=== PATIENT | female | born 2000 | race Two or more races ===

== ENCOUNTER 2024-10-26 09:11 | Observation (INO) | payer SELFPAY ==
[2024-10-26 09:18] VITALS: BP 110/66; PULSE 81; RESP 17; RESP 98; TEMP 36.8
[2024-10-26 09:31] VITALS: BP 110/66; PULSE 81
[2024-10-26 09:33] VITALS: BMI 28.1
--- NOTE | 2024-10-26 11:10 | XR_ITS ---
Examination: Complete OB ultrasound greater than 14 weeks Date and time of exam: October 26, 2024 1246 hours INDICATIONS: Onset vaginal bleeding today Findings: Viable intrauterine single fetus with single amniotic sac presentation cephalic Cardiac motion 145 BPM Placenta posterior grade 2 no abruption Umbilical cord insertion 3 vessel seen Amniotic fluid 8.3 cm spine maternal right Cervix 3.4 cm. Composite estimated gestational age based on BPD, head circumference, abdominal circumference, femur length is 30 weeks 5 days Estimated weight 1563 g. Survey of intracranial anatomy, spinal anatomy, abdominal anatomy, four-chamber heart performed with no abnormalities identified. Impression: Viable intrauterine gestation cephalic presentation Placenta posterior grade 2 no abruption.
[2024-10-26 11:18] LABS: Collection Type, Urine Clean Catch
[2024-10-26 12:14] LABS: FFN Specimen Descripton Bloody/Pink/Red; Fetal Fibronectin Negative (Negative)
[2024-10-26 12:42] LABS: Bilirubin,Urine Negative (Negative); Blood,Urine 3+ (Negative); Clarity,Urine Clear (Clear/Hazy); Color,Urine Lt-Yellow (Lt Yel-Yel); Glucose, Urine Negative (Negative); Ketones,Urine Negative (Negative); Nitrite,Urine Negative (Negative); Protein,Urine Trace (Neg - Trace); RBC,Urine 1 /hpf (0-3); Specific Gravity,Urine 1.015 (1.001-1.035); Squamous Epithelial Cell,Urine 5 /hpf (0-5); Urobilinogen,Urine Negative mg/dL (0.0-1.0); WBC,Urine 2 /hpf (0-5)
[2024-10-26 12:47] LABS: Leukocyte Esterase,Urine Trace (Negative)
== END 2024-10-26 13:55 | disposition home or self-care (01) ==
PROVIDERS: Admitting Provider Obstetrics & Gynecology; Visit Provider Obstetrics & Gynecology
DX: O46.93 Antepartum hemorrhage, unspecified, third trimester (principal); Z3A.30 30 weeks gestation of pregnancy
CPT/HCPCS: 59025; 59899; 76805; 81001; 82731; G0378